=== PATIENT | male | born 1950 | race Caucasian/White ===

== ENCOUNTER 2016-12-24 03:36 | Emergency (ER) | payer MEDICARE ==
[~2016-12-24] VITALS: Ht 188 cm; Wt 91.0 kg
[~2016-12-24 03:36] MED LIST: ASPI-110 PO; LISI-515 PO; VIAG100T PO
[2016-12-24 03:39] VITALS: BP 189/86; PULSE 69; RESP 14; TEMP 97.7; O2SAT 98
[2016-12-24] MEDS ORDERED: ACETAMINOPHEN/HYDROcodone 325 MG/5 MG TAB PO ONE ×2 (04:15→04:30)
[2016-12-24] MEDS ORDERED: HYDR-3533 PO (04:16)
--- NOTE | 2016-12-24 04:22 | PD ---
HPI Chief Complaint: Injury Time Seen by Provider: 04:16 Travel History International Travel<30 days: No Contact w/Intl Traveler<30days: No Traveled to known affect area: No History of Present Illness HPI 66-year-old white male right-hand dominant presents emergency Department with complaints of right shoulder pain. He states that he was exercising in the gym bench pressing when he developed pain in his right shoulder. He states that his right arm collapsed down. He states that he cannot raise his arm out in front of them. He denies any numbness, tingling or weakness. Symptoms are moderate. 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) Cardiovascular Problems: Yes (HTN) Diabetes: No Endocrine: No Gastrointestinal Disorders: Yes (ACID REFLUX) Genitourinary: No Hepatitis: No Hiatal Hernia: Yes Hypertension: Yes Immune Disorder: No Musculoskeletal: Yes (ARTHRITIS, COMPRESSION FRACTURE IN UPPER SPINE) Neurologic: No Psychiatric: No Reproductive: No Respiratory: No Thyroid Disease: No Tetanus Vaccination: < 5 Years Past Surgical History Narrative Surgical ORIF left wrist fracture, right knee replacement AICD: No Joint Replacement: No Pacemaker: No Other Surgery: Yes Social History Alcohol Use: Yes Tobacco Use: No Substance Use: No Allergies-Medications (Allergen,Severity, Reaction): Coded Allergies: No Known Allergies (Unverified , 12/24/16) Reported Meds & Prescriptions Reported Meds & Active Scripts Active Lisinopril 20 Mg Tab 20 Mg PO DAILY Viagra (Sildenafil Citrate) 100 Mg Tab 100 Mg PO DAILY PRN Reported Aspirin 81 (Aspirin) 81 Mg Tabdr 81 Mg PO DAILY Review of Systems Except as stated in HPI: all other systems reviewed are Neg Physical Exam Narrative GENERAL: This is a well-nourished, well-developed patient, in no apparent distress. SKIN: No rashes, ecchymoses or lesions. Warm and dry. HEAD: Atraumatic. Normocephalic. EYES: PERRL, EOMI, no discharge or injection. No scleral icterus. EARS: Clear NOSE: Nasal turbinates appear normal. THROAT: Mucosa pink and moist. Airway patent. NECK: Trachea midline. supple, moves head freely. LUNGS: Clear to auscultation. CV: Regular in rhythm. ABDOMEN: Soft nontender. EXT: No clubbing cyanosis or edema. Examination of the right upper extremity reveals global pain in the glenohumeral joint. No joint effusion. Positive drop test. Patient is unable to raise his arm in front of him. He has decreased lateral abduction. No pain in the elbow, wrist or hand. Median/ulnar /radial nerves intact. Data Data Last Documented VS Vital Signs Date Time Temp Pulse Resp B/P Pulse Ox O2 Delivery O2 Flow Rate FiO2 12/24/16 03:39 97.7 69 14 189/86 98 Room Air Orders Ice/Cold Pack (12/24/16 04:12) Splint Or Brace Apply/Monitor (12/24/16 04:12) Acetamin-Hydrocod 325-5 Mg ([place] 5-325 (12/24/16 04:15) MDM Medical Decision Making Medical Screen Exam Complete: Yes Emergency Medical Condition: Yes Medical Record Reviewed: Yes Differential Diagnosis MDM: High Differential diagnoses: Fracture, sprain, strain, dislocation, contusion, neurovascular injury Narrative Course Patient has symptoms consistent with a right rotator cuff tear. Patient's given Lortab 5 mg, sling. This is right rotator cuff tear Diagnosis Primary Impression: Right rotator cuff tear Patient Instructions: General Instructions, Narcotic given in the ED Additional Instructions: Rest. Sling. Ice. 3 Advil 4 times daily. Lortab. Follow-up with an orthopedist within the next 3-5 days. Return to the ER for emergencies. Med/Other Pt SpecificInfo: Prescription(s) given Scripts Hydrocodone-Acetaminophen (Lortab)5-325 Mg Tab1 Tab PO Q6H PRN (PAIN) #20 TAB Prov:Michaelle Streeter MD 12/24/16 Disposition: 01 DISCHARGE HOME Condition: Stable Oseas Skinner Dec 24, 2016 04:22
[2017-01-05] MEDS ORDERED: VIAG100T PO (16:47)
== END 2016-12-24 04:35 | disposition home or self-care (01) ==
LOC: NEPB 03:36
DX: M75.101 Unspecified rotator cuff tear or rupture of right shoulder, not specified as traumatic (principal)
CPT/HCPCS: 99283

== ENCOUNTER → 2017-02-01 | Day surgery (SDC) | payer MEDICARE ==
[~2017-02-01] MED LIST changes: +BUPIVACAINE HCL PF 0.75% 30 ML VIAL ONE; +HYDR-3533 PO; +LACTATED RINGER'S 1000 ML INJ 1,000 ML ONE; +LIDOCAINE 1.5%/EPINEPHrine 1:200,000 PF SOLN 30 ML AMP OTHER ONE; +MIDAZOLAM HCL 5 MG/ML VIAL (1 ML) ONE; +PROPOFOL 200 MG/20 ML AMP IV ONE; +ceFAZolin 2 GM PREMIX 50 ML ONE
--- NOTE | 2017-02-04 07:17 | MP ---
cc: ROCCO MORAN DATE OF SURGERY: 02/04/2017 PREOPERATIVE DIAGNOSIS: Right shoulder, rotator cuff tear. Right shoulder impingement syndrome. Right shoulder labral tear. POSTOPERATIVE DIAGNOSIS: Right shoulder, rotator cuff tear. Right shoulder impingement syndrome. Right shoulder labral tear. OPERATION: Right shoulder arthroscopic rotator cuff repair. Right shoulder arthroscopic subacromial decompression. Right shoulder extensive debridement of SLAP labral tear. SURGEON: Rocco Moran MD. SERGEANT AT ARMS: Deepti ANESTHESIA: General. With an anterior scalene block. ESTIMATED BLOOD LOSS: Less then 50 cc. COMPLICATIONS: None. IMPLANTS USED: Arthrex. JUSTIFICATION: This patient is a 66 year male who injured the right shoulder, he has pain and weakness in regards to his condition and failure of conservative treatment. The clinical examination as well as the MRI confirmed the above findings. The patient was counseled as to the risks, benefits and alternatives of the above named procedure, he did which to proceed with surgery. PROCEDURE IN DETAIL: Written consent was obtained. The patient was identified by name, was taken to the operating room in supine position, general anesthesia was administered as well as 2 grams of IV Ancef. The patient carefully turned to the left lateral decubitus position lateral arm roll was placed all bony pounds and pressure points were well padded. The patient neck was carefully monitored and neutral. The arm lazar was gently applied to the right upper extremity, with 10 pounds traction placed. The right shoulder prepped and draped using Isopropyl alcohol, Hibiclens solution and DuraPrep solution. A standard posterior and anterior glenohumeral arthroscope portal established. Glenohumeral joint revealed evidence of labral tearing along the anterior superior tire groover portion. An arthroscopic shaver was introduced from the anterior portal, and extensive debridement labrum was performed from 3 o'clock position to 12 o'clock position back to the 9 o'clock position. Mild chondromalacia of the glenohumeral joint was noted. Attention was turned to the subacromial space, there was evidence of severe impingement with bursitis. An arthroscopic shaver was introduced into the lateral portal. A subacromial decompression was performed. The shaver was used for bursectomy. A Bur used for acromioplasty and cautery device was used to release coracoacromial ligament. There was a massive tear of the rotator cuff pinning involving the entire supraspinatus portion of the infraspinatus tendon. A bur was used to decorticate the greater tuberosity preparation rotator cuff tendon repair. Two Arthrex 4.75 mm bio swivel lock anchors were inserted along the medial row. The Arthrex scorpion device was used to shuttle #2 fiber tape suture from each anchor through the torn tendon. A #2 fiber link suture was placed along the anterior tire groover portions as well. At this point Arthrex double row speed bridge construct was created with insertion of a posterior lateral anchor and anterolateral anchor. After a tensioning of sutures and insertion of lateral roll anchors, the rotator cuff tear was probed and allowed to get great stability and fixation. The arthroscopic portals closed 3-0 Prolene sutures. Sterile dressing applied. The patient tolerated the procedure with no intraoperative complications noted. Burt Guzman physician fitness assistant was present procedure to include patient positioning and the procedure it self for the medical necessity of physician fitness assistant indicated due to complexity of the procedure, he assisted with manipulation of the arm and also manipulation of the camera. He assisted with shuttling of sutures and also implantation of suture anchors for purpose of rotator cuff tendon repair. MD REINIER Barkley/tanner /3:55 PM /6:40 AM
== END | disposition home or self-care (01) ==
LOC: ESDC 12:43
PROVIDERS: ATTEND Orthopaedic Surgery Sports Medicine
DX: M75.121 Complete rotator cuff tear or rupture of right shoulder, not specified as traumatic (principal); M75.41 Impingement syndrome of right shoulder; S43.431A Superior glenoid labrum lesion of right shoulder, initial encounter
CPT/HCPCS: 01630; 01991; 29823; 29826; 29827; 64417; C1713; J0690; J2250; J7120